=== PATIENT | male | born 1975 | race Caucasian/White ===

== ENCOUNTER 2019-04-25 16:53 | Emergency (ER) | payer OTHER ==
--- NOTE | 2019-04-25 17:50 | ULT ---
Scrotal sonogram with duplex evaluation HISTORY: Right scrotal pain. FINDINGS: Right testicle measures up to 3.9 cm and the left 3.6 cm. Each has a normal sonographic chetan earance with good color and spectral Doppler flow. Small amount of fluid within each side of the scrotum. IMPRESSION: Small bilateral hydroceles. No evidence of testicular mass or torsion.
[2019-04-25 18:09] LABS: Bilirubin Negative (Negative); Blood, Urine Negative (Negative); Clarity Clear (Clear); Glucose, Urine (Dipstick) Normal (Negative); Leukocyte Negative Leu/uL (Negative); Nitrite Negative (Negative); Protein, Urine (Dipstick) Negative (Neg-Trace); Urobilinogen Normal mg/dL (Less than 2)
[2019-04-28 18:57] LABS: Chlam.trachomatis by PCR,Urine Not Detected (NotDetected)
== END 2019-04-25 19:08 | disposition home or self-care (01) ==
LOC: ERS 16:53 → EEVIPCON 16:53 → ERS 19:08
DX: N43.3 Hydrocele, unspecified (principal)
CPT/HCPCS: 76870; 81003; 87491; 87591; 93976